=== PATIENT | female | born 1995 | race Caucasian/White ===

== ENCOUNTER 2021-03-03 02:19 | Observation (INO) | payer MEDICAID ==
[~2021-03-03] VITALS: Ht 175.3 cm; Wt 68.0 kg
[2021-03-03] MEDS ORDERED: PNV1TABL76 PO (03:45)
[2021-03-03 04:30] LABS: CLARITY URINE CLEAR (CLEAR); COLOR URINE YELLOW (YELLOW); KETONES URINE 4+ (NEGATIVE); LEUKOCYTE ESTERASE URINE 1+ (NEGATIVE); NITRITE URINE NEGATIVE (NEGATIVE); OCCULT BLOOD URINE NEGATIVE (NEGATIVE); PH URINE 5.5 (4.5-8.0); PROTEIN URINE TRACE (NEGATIVE); SPECIFIC GRAVITY URINE 1.023 (1.005-1.030)
[2021-03-03 04:41] LABS: *AMPHETAMINES SCREEN URINE NEGATIVE (NEGATIVE)
[2021-03-03 04:42] LABS: *BARBITURATES SCREEN URINE NEGATIVE (NEGATIVE); *BENZODIAZEPINES SCREEN URINE NEGATIVE (NEGATIVE); *COCAINE SCREEN URINE NEGATIVE (NEGATIVE); METHADONE URINE SCREEN NEGATIVE (NEGATIVE); OPIATES URINE SCREEN NEGATIVE (NEGATIVE); PHENCYCLIDINE URINE SCREEN NEGATIVE (NEGATIVE)
[2021-03-03 04:43] LABS: CANNABINOID URINE SCREEN NEGATIVE (NEGATIVE)
[2021-03-03] MEDS ORDERED: LACTATED RINGERS 1,000 ML IV SCH (06:15)
[2021-03-03] MEDS ORDERED: CEFAZOLIN 2,000 MG in DEXT 5% WATER 100 ML IV SCH (06:30)
[2021-03-03] MEDS ORDERED: PNV1TABL76 MT (07:29)
== END 2021-03-03 07:45 | disposition home or self-care (01) ==
LOC: 8 EST LDRP 02:19
PROVIDERS: ADMIT Obstetrics & Gynecology; ATTEND Obstetrics & Gynecology
DX: O26.892 Other specified pregnancy related conditions, second trimester (principal); R10.9 Unspecified abdominal pain; Z3A.23 23 weeks gestation of pregnancy
CPT/HCPCS: 59025; 76805; 80305; 81003; 96365; G0378; J0690; J7060; 99281